=== PATIENT | female | born 1995 | race Two or more races ===

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

== ENCOUNTER 2017-02-05 17:35 | Emergency (ER) | payer OTHER ==
[2017-02-05] MEDS ORDERED: SODIUM CHLORIDE 0.9% 1000ML 1,000 ML IV ONE ×2 (17:56→22:10)
[2017-02-05 18:06] LABS: APPEARANCE,URINE Clear; BILIRUBIN,URINE NEGATIVE (NEGATIVE); COLOR,URINE Light yellow; GLUCOSE, URINE (UA) NEGATIVE (NEGATIVE); KETONES,URINE NEGATIVE (NEGATIVE); LEUKOCYTE ESTERASE ,URINE NEGATIVE (NEGATIVE); NITRATE,URINE NEGATIVE (NEGATIVE); OCCULT BLOOD,URINE NEGATIVE (NEG-TRACE); UROBILINOGEN,URINE 0.2 (0.2-1.0 EU)
[2017-02-05] MEDS: SODIUM CHLORIDE 0.9% FLUSH 10 ML SOL IV PRN ×2 (18:10→21:54)
[2017-02-05 18:15] LABS: RBC,URINE NEGATIVE (0-3AV/HPF); WBC,URINE NEGATIVE (0-5AV/HPF)
[2017-02-05 20:27] VITALS: RESP 20
[2017-02-05 20:45] LABS: BASOPHILS % (AUTO) 0 % (0-3); EOSINOPHILS % (AUTO) 1 % (0-9); HEMATOCRIT 30 % (35-47); MEAN CORPUSCULAR HGB CONC 34.4 gm/dl (32.0-36.0); MONOCYTES % (AUTO) 8.2 % (0-12); NEUTROPHILS % (AUTO) 68.1 % (37-80)
[2017-02-05 20:54] LABS: MEAN CORPUSCULAR VOLUME 81 fL (81-99)
[2017-02-05 20:58] LABS: ALBUMIN 2.6 gm/dl (3.4-5.0); CALCIUM 8.1 mg/dl (8.5-10.1); POTASSIUM 3.7 mMol/L (3.5-5.1)
[2017-02-05] MEDS ORDERED: FENTANYL 100MCG/2ML SOL IV ONE ×2 (21:26→23:08)
[2017-02-05] MEDS ORDERED: ACETAMINOPHEN 500 MG 500 MG TAB PO ONE (21:28)
[2017-02-05] MEDS ORDERED: ACETAMINOPHEN 500 MG 500 MG TAB ONE (21:33)
[2017-02-05] MEDS ORDERED: FENTANYL 100MCG/2ML SOL ONE ×2 (21:33→23:09)
[2017-02-05] MEDS ORDERED: DIPHENHYDRAMINE 50 MG/ML SOL IV ONE (22:10)
[2017-02-05] MEDS ORDERED: DIPHENHYDRAMINE 50 MG/ML SOL ONE (22:12)
[2017-02-05 23:58] VITALS: TEMP 98.2
[2017-02-06 04:32] VITALS: PULSE 72
[2017-02-06 04:33] VITALS: BP 96/59; O2SAT 97
== END 2017-02-05 23:30 | disposition short-term general hospital (02) | DRG 778 ==
LOC: ED 17:35
DX: O60.03 Preterm labor without delivery, third trimester (principal); Z3A.35 35 weeks gestation of pregnancy
CPT/HCPCS: 59025; 80053; 81001; 85025; 96365; 96366; 96374; 96375; 99284; 99285; J1200; J3010

== ENCOUNTER 2017-02-28 21:41 | Observation (INO) | payer OTHER ==
[2017-02-06 04:33] VITALS: O2SAT 97
[2017-03-01 00:55] LABS: BASOPHILS % (AUTO) 1 % (0-3); EOSINOPHILS % (AUTO) 1 % (0-9); HEMATOCRIT 32 % (35-47); MEAN CORPUSCULAR HGB CONC 34.3 gm/dl (32.0-36.0); MONOCYTES % (AUTO) 9.4 % (0-12); NEUTROPHILS % (AUTO) 68.2 % (37-80)
[2017-03-01 01:14] LABS: MEAN CORPUSCULAR VOLUME 79 fL (81-99)
[2017-03-01 08:51] VITALS: BP 102/65; PULSE 82; RESP 16; TEMP 97.9
== END 2017-03-01 09:10 | disposition home or self-care (01) | DRG 951 ==
LOC: OB 21:41
PROVIDERS: ADMIT Family Medicine; ATTEND Family Medicine
DX: Z34.83 Encounter for supervision of other normal pregnancy, third trimester (principal); Z3A.38 38 weeks gestation of pregnancy
CPT/HCPCS: 36415; 59025; 85025

== ENCOUNTER 2017-03-05 13:28 | Observation (INO) | payer OTHER ==
[2017-02-06 04:33] VITALS: O2SAT 97
[2017-03-05 14:04] VITALS: BP 133/66; PULSE 73; RESP 20; TEMP 96.6
== END 2017-03-05 14:50 | disposition home or self-care (01) | DRG 951 ==
LOC: OB 13:28
PROVIDERS: ADMIT Family Medicine; ATTEND Family Medicine
DX: Z34.83 Encounter for supervision of other normal pregnancy, third trimester (principal); Z3A.39 39 weeks gestation of pregnancy
CPT/HCPCS: 59025; 84112

== ENCOUNTER 2017-03-06 02:47 | Inpatient (IN) | payer OTHER ==
[2017-03-06] MEDS ORDERED: OXYTOCIN 10000 MU/ML SOL IM PRN (02:59)
[2017-03-06] MEDS ORDERED: DIPHENHYDRAMINE 50 MG/ML SOL IV PRN (02:59)
[2017-03-06] MEDS ORDERED: LACTATED RINGERS 1,000 ML IV PRN (02:59)
[2017-03-06] MEDS ORDERED: NALOXONE HYDROCHLORIDE 0.4 MG/ML SOL IV PRN ×2 (02:59→03:42)
[2017-03-06] MEDS ORDERED: SODIUM CHLORIDE 0.9% FLUSH 10 ML SOL IV PRN (02:59)
[2017-03-06] MEDS ORDERED: CARBOPROST 250 MCG/ML SOL IM PRN (02:59)
[2017-03-06] MEDS ORDERED: FENTANYL 100MCG/2ML SOL IV PRN (02:59)
[2017-03-06] MEDS ORDERED: EPHEDRINE SULFATE 50 MG/ML SOL IV PRN (02:59)
[2017-03-06] MEDS ORDERED: METHYLERGONOVINE MALEATE 0.2 MG/ML SOL IM PRN (02:59)
[2017-03-06] MEDS ORDERED: NALBUPHINE HCL 20 MG/ML SOL IV PRN (02:59)
[2017-03-06] MEDS ORDERED: MEPIVACAINE HCL 1% MPF 30 ML SOL INFIL PRN (02:59)
[2017-03-06] MEDS: LACTATED RINGERS 1,000 ML IV SCH ×2 (03:00→03:18)
[2017-03-06] MEDS ORDERED: LACTATED RINGERS 1,000 ML IV SCH ×3 (03:00→03:45)
[2017-03-06] MEDS: SODIUM CHLORIDE 0.9% FLUSH 10 ML SOL IV SCH ×3 (03:00→20:14)
[2017-03-06 03:35] LABS: BASOPHILS % (AUTO) 1 % (0-3); EOSINOPHILS % (AUTO) 1 % (0-9); HEMATOCRIT 28 % (35-47); MEAN CORPUSCULAR HGB CONC 34.7 gm/dl (32.0-36.0); NEUTROPHILS % (AUTO) 67.2 % (37-80)
[2017-03-06 03:41] LABS: MEAN CORPUSCULAR VOLUME 78 fL (81-99)
[2017-03-06] MEDS ORDERED: MORPHINE SULFATE 0.5 MG/ML SOL ONE (03:41)
[2017-03-06] MEDS ORDERED: HYDROXYZINE HYDROCHLORIDE 25 MG/ML SOL IM PRN (03:42)
[2017-03-06] MEDS ORDERED: DIPHENHYDRAMINE 50 MG/ML SOL IM PRN (03:42)
[2017-03-06] MEDS ORDERED: DIPHENHYDRAMINE 25 MG CAP PO PRN (03:42)
[2017-03-06] MEDS ORDERED: TEMAZEPAM 15MG 15 MG CAP PO PRN (05:25)
[2017-03-06] MEDS ORDERED: BENZOCAINE/MENTHOL 1 SPR TOP PRN (05:25)
[2017-03-06] MEDS ORDERED: BISACODYL 10 MG SUP PR PRN (05:25)
[2017-03-06] MEDS ORDERED: FLEET ENEMA PR PRN (05:25)
[2017-03-06] MEDS ORDERED: METHYLERGONOVINE MALEATE 0.2 MG TAB PO PRN (05:25)
[2017-03-06] MEDS: IBUPROFEN 600 MG TAB PO PRN ×2 (06:36→16:44)
[2017-03-06] MEDS: DOCUSATE SODIUM 100 MG SGL PO SCH ×2 (08:49→20:14)
[2017-03-06] MEDS: APAP/HYDROCODONE 325/5 TAB PO PRN ×2 (08:57→20:42)
[2017-03-07] MEDS: APAP/HYDROCODONE 325/5 TAB PO PRN ×4 (02:56→21:47)
[2017-03-07] MEDS: SODIUM CHLORIDE 0.9% FLUSH 10 ML SOL IV SCH ×2 (02:57→15:19)
[2017-03-07] MEDS: DOCUSATE SODIUM 100 MG SGL PO SCH ×2 (08:42→21:47)
[2017-03-07] MEDS: WITCH HAZEL 1 EA PAD TOP PRN ×2 (09:58→15:18)
[2017-03-07] MEDS: IBUPROFEN 600 MG TAB PO PRN ×2 (09:58→18:30)
[2017-03-07 14:25] VITALS: RESP 20
[2017-03-08 06:50] VITALS: BP 106/71; PULSE 68; TEMP 98; O2SAT 98
[2017-03-08] MEDS: IBUPROFEN 600 MG TAB PO PRN (07:57)
[2017-03-08] MEDS: DOCUSATE SODIUM 100 MG SGL PO SCH (08:01)
== END 2017-03-08 13:30 | disposition home or self-care (01) | DRG 775 ==
LOC: OB 02:47 → INTOOBSV 02:47 → UNDOADMOB 02:47 → OBSVTOIN 02:47 → UNDODISIN 03-08 13:30
PROVIDERS: ADMIT Family Medicine; ATTEND Family Medicine
PROC: 10E0XZZ Delivery of Products of Conception, External Approach (ICD-10-PCS; principal; 2017-03-06)
DX: O71.5 Other obstetric injury to pelvic organs (principal); Z37.0 Single live birth; Z3A.39 39 weeks gestation of pregnancy
CPT/HCPCS: 36415; 59025; 85018; 85025; 94760; J0670; J2274; J2590; J3010

== ENCOUNTER 2017-08-02 00:47 | Emergency (ER) | payer OTHER ==
[2017-08-02] MEDS ORDERED: IBUPROFEN 400 MG TAB PO ONE (01:49)
[2017-08-02] MEDS ORDERED: ACETAMINOPHEN 500 MG 500 MG TAB PO ONE (01:49)
[2017-08-02] MEDS ORDERED: IBUPROFEN 400 MG TAB ONE (01:57)
[2017-08-02] MEDS ORDERED: ACETAMINOPHEN 500 MG 500 MG TAB ONE (01:58)
[2017-08-02 02:33] VITALS: BP 107/70; PULSE 117; RESP 16; TEMP 98; O2SAT 97
== END 2017-08-02 02:24 | disposition home or self-care (01) | DRG 103 ==
LOC: ED 00:47
DX: R51 Headache (principal); M25.511 Pain in right shoulder; M54.2 Cervicalgia; M25.512 Pain in left shoulder; Y04.2XXA Assault by strike against or bumped into by another person, initial encounter
CPT/HCPCS: 70450; 99282; 99283

== ENCOUNTER 2018-03-06 00:18 | Observation (INO) | payer OTHER ==
[2018-03-06 00:54] LABS: BASOPHILS % (AUTO) 1 % (0-3); EOSINOPHILS % (AUTO) 1 % (0-9); HEMATOCRIT 31 % (35-47); LYMPHOCYTES % (AUTO) 23.7 % (10-50); MEAN CORPUSCULAR HEMOGLOBIN 27.9 pg (27.0-32.0); MEAN CORPUSCULAR HGB CONC 34.9 gm/dl (32.0-36.0); MONOCYTES % (AUTO) 9.7 % (0-12); NEUTROPHILS % (AUTO) 65.4 % (37-80)
[2018-03-06 00:56] LABS: MEAN CORPUSCULAR VOLUME 80 fL (81-99)
[2018-03-06] MEDS ORDERED: AMPICILLIN 1 GM PDS 2 GM in SODIUM CHLORIDE 0.9% 100 ML 100 ML IV ONE (01:09)
[2018-03-06 01:30] VITALS: O2SAT 98
[2018-03-06 01:45] VITALS: BP 129/87; PULSE 113; RESP 20; TEMP 99.4
== END 2018-03-06 01:50 | disposition short-term general hospital (02) | DRG 778 ==
LOC: ED 00:18 → OB 00:40
PROVIDERS: ADMIT Family Medicine; ATTEND Family Medicine
DX: O60.03 Preterm labor without delivery, third trimester (principal); Z3A.35 35 weeks gestation of pregnancy
CPT/HCPCS: 59025; 85025; 99219; 99283; J0290

== ENCOUNTER 2018-04-07 03:05 | Emergency (ER) | payer OTHER ==
[2018-04-07 03:27] LABS: BASOPHILS % (AUTO) 1 % (0-3); EOSINOPHILS % (AUTO) 1 % (0-9); HEMATOCRIT 41 % (35-47); HEMOGLOBIN 13.1 gm/dl (12.0-15.5); LYMPHOCYTES % (AUTO) 36.03 % (10-50); MEAN CORPUSCULAR HEMOGLOBIN 26.4 pg (27.0-32.0); MEAN CORPUSCULAR HGB CONC 32.1 gm/dl (32.0-36.0); MEAN CORPUSCULAR VOLUME 82 fL (81-99); MONOCYTES % (AUTO) 7.9 % (0-12); NEUTROPHILS % (AUTO) 54.3 % (37-80)
[2018-04-07 03:28] LABS: AMPHETAMINES NEGATIVE (NEGATIVE); BARBITUATES NEGATIVE (NEGATIVE); BENZODIAZEPINES NEGATIVE (NEGATIVE); CANNABINOL(THC) NEGATIVE (NEGATIVE); COCAINE(COC) NEGATIVE (NEGATIVE); METHADONE NEGATIVE (NEGATIVE); METHAMPHETAMINES NEGATIVE (NEGATIVE); OPIATES(OPI) NEGATIVE (NEGATIVE); OXYCODONE(OXY) NEGATIVE (NEGATIVE); PROPOXYPHENE(PPX) NEGATIVE (NEGATIVE); TRICYCLIC ANTIDEPRESSANTS NEGATIVE (NEGATIVE)
[2018-04-07] MEDS ORDERED: SODIUM CHLORIDE 0.9% 1000ML 1,000 ML IV ONE ×2 (03:28→04:43)
[2018-04-07 03:34] LABS: ALCOHOL 0.181 gm/dl (0.000-0.08); CALCIUM 8.2 mg/dl (8.5-10.1); CARBON DIOXIDE 23.6 mEq/L (21-32); CREATININE 0.67 mg/dl (0.60-1.00); POTASSIUM 3.2 mMol/L (3.5-5.1)
[2018-04-07 09:13] VITALS: TEMP 98.7; O2SAT 98
[2018-04-07 09:42] VITALS: BP 96/57; PULSE 88; RESP 18
[2018-04-07 23:28] LABS: BASOPHILS % (AUTO) 0 % (0-3); EOSINOPHILS % (AUTO) 1 % (0-9); HEMATOCRIT 37 % (35-47); HEMOGLOBIN 12.1 gm/dl (12.0-15.5); MEAN CORPUSCULAR HEMOGLOBIN 27.1 pg (27.0-32.0); MEAN CORPUSCULAR HGB CONC 32.5 gm/dl (32.0-36.0); MEAN CORPUSCULAR VOLUME 83 fL (81-99); MONOCYTES % (AUTO) 7.6 % (0-12); NEUTROPHILS % (AUTO) 59.9 % (37-80)
[2018-04-07 23:47] LABS: APPEARANCE,URINE Clear; BILIRUBIN,URINE NEGATIVE (NEGATIVE); COLOR,URINE Light yellow; GLUCOSE, URINE (UA) NEGATIVE (NEGATIVE); KETONES,URINE NEGATIVE (NEGATIVE); LEUKOCYTE ESTERASE ,URINE TRACE (NEGATIVE); NITRATE,URINE NEGATIVE (NEGATIVE); OCCULT BLOOD,URINE NEGATIVE (NEG-TRACE); UROBILINOGEN,URINE 0.2 (0.2-1.0 EU)
[2018-04-07 23:51] LABS: ALBUMIN 3.3 gm/dl (3.4-5.0); ALKALINE PHOSPHATASE 56 IU/L (46-116); ALT 21 IU/L (14-63); AST 22 IU/L (15-37); BILIRUBIN,DIRECT 0.1 mg/dl (0.0-0.2); BILIRUBIN,TOTAL 0.3 mg/dl (0.2-1.0); BLOOD UREA NITROGEN 4 mg/dl (7-18); CALCIUM 8.7 mg/dl (8.5-10.1); CHLORIDE 108 mMol/L (98-107); CREATININE 0.69 mg/dl (0.60-1.00); GLUCOSE 93 mg/dl (74-106); POTASSIUM 3.8 mMol/L (3.5-5.1); SODIUM 140 mMol/L (136-145); THYROID STIMULATING HORMONE 2.018 uIU/ml (0.358-3.740); TOTAL PROTEIN 6.1 gm/dl (6.4-8.2)
[2018-04-07 23:57] LABS: ALCOHOL < 0.003 gm/dl (0.000-0.08); CARBON DIOXIDE 27.3 mEq/L (21-32)
[2018-04-08] LABS: AMPHETAMINES NEGATIVE (NEGATIVE); BACTERIA TRACE (< 1+); BARBITUATES NEGATIVE (NEGATIVE); BENZODIAZEPINES NEGATIVE (NEGATIVE); CANNABINOL(THC) NEGATIVE (NEGATIVE); COCAINE(COC) NEGATIVE (NEGATIVE); CRYSTALS NEGATIVE (0-3 AVE/HPF); METHADONE NEGATIVE (NEGATIVE); METHAMPHETAMINES NEGATIVE (NEGATIVE); OPIATES(OPI) NEGATIVE (NEGATIVE); OXYCODONE(OXY) NEGATIVE (NEGATIVE); PROPOXYPHENE(PPX) NEGATIVE (NEGATIVE); RBC,URINE NEGATIVE (0-3AV/HPF); TRICYCLIC ANTIDEPRESSANTS NEGATIVE (NEGATIVE)
== END 2018-04-07 09:37 | disposition home or self-care (01) | DRG 948 ==
LOC: ED 03:05
DX: R41.82 Altered mental status, unspecified (principal); O99.355 Diseases of the nervous system complicating the puerperium; R56.9 Unspecified convulsions; G40.909 Epilepsy, unspecified, not intractable, without status epilepticus; R40.2432 Glasgow coma scale score 3-8, at arrival to emergency department; Z72.89 Other problems related to lifestyle; Y90.6 Blood alcohol level of 120-199 mg/100 ml
CPT/HCPCS: 36415; 70450; 80048; 80053; 80076; 80305; 80307; 81001; 83735; 84443; 85025; 87088; 96365; 96366; 99285; 99291

== ENCOUNTER 2018-04-07 22:56 | Emergency (ER) | payer OTHER ==
[2018-04-07] MEDS ORDERED: SODIUM CHLORIDE 0.9% 1000ML 1,000 ML IV ONE (23:29)
[2018-04-07 23:57] VITALS: TEMP 97.7
[2018-04-08 00:37] VITALS: BP 88/58; PULSE 71; RESP 16; O2SAT 95
== END 2018-04-08 02:05 | disposition short-term general hospital (02) | DRG 948 ==
LOC: ED 22:56
DX: R41.82 Altered mental status, unspecified (principal); O99.355 Diseases of the nervous system complicating the puerperium; R56.9 Unspecified convulsions; G40.909 Epilepsy, unspecified, not intractable, without status epilepticus; R40.2432 Glasgow coma scale score 3-8, at arrival to emergency department
CPT/HCPCS: 70450; 80053; 80076; 80305; 80307; 81001; 83735; 84443; 85025; 99285